=== PATIENT | female | born 1990 | race Caucasian/White ===

== ENCOUNTER 2017-08-19 17:23 | Emergency (ER) | payer BC ==
[2017-08-19 17:48] VITALS: BP 131/81
--- NOTE | 2017-08-19 18:43 | UC ---
Respiratory Complaint HPI - HPI Summary HPI Summary: 27f presents with cough for 2 weeks. She admits to SOB and some wheezing. no history of asthma. admits to post nasal drip and some sinus congestion. no sinus tenderness. no sore throat. no n/v or abdominal pain. tried cough medication without relief. - History of Current Complaint Chief Complaint: UCRespiratory Stated Complaint: COUGH/CONGESTION Time Seen by Provider: 08/19/17 18:05 Hx Last Menstrual Period: 08/04/17 - Allergies/Home Medications Allergies/Adverse Reactions: Allergies Allergy/AdvReac Type Severity Reaction Status Date / Time No Known Allergies Allergy Verified 08/19/17 17:40 Home Medications: Home Medications Escitalopram (NF) [Lexapro 10 mg (NF)] 10 mg PO DAILY 08/19/17 [History Confirmed 08/19/17] PMH/Surg Hx/FS Hx/Imm Hx Endocrine History: Other Other Endocrine History: no DM Respiratory History: Other Other Respiratory History: no asthma - Surgical History Surgical History: Yes Surgery Procedure, Year, and Place: APPENDECTOMY - Family History Known Family History: Negative: Respiratory Disease - Social History Alcohol Use: Occasionally Substance Use Type: None Smoking Status (MU): Light Every Day Tobacco Smoker Type: Cigarettes Amount Used/How Often: 5 CIGS PER DAY - Immunization History Most Recent Influenza Vaccination: JUL 2017 Most Recent Tetanus Shot: 2010 Review of Systems Constitutional: Negative ENT: Sinus Congestion Respiratory: Cough Cardiovascular: Negative Gastrointestinal: Negative All Other Systems Reviewed And Are Negative: Yes Physical Exam Triage Information Reviewed: Yes Appearance: Well-Appearing Vital Signs: Initial Vital Signs Temp 98.5 F 08/19/17 17:41 Pulse 80 08/19/17 17:41 Resp 18 08/19/17 17:41 BP 131/81 08/19/17 17:41 Pulse Ox 99 08/19/17 17:41 Vital Signs Reviewed: Yes Eyes: Positive: Conjunctiva Clear ENT: Positive: Normal ENT inspection, Pharynx normal, Nasal drainage, TMs normal Neck: Positive: Supple, Nontender, No Lymphadenopathy Respiratory: Positive: Lungs clear, Other: - some crackles heard Cardiovascular: Positive: RRR Abdomen Description: Positive: Nontender, Soft Bowel Sounds: Positive: Present Musculoskeletal Exam: Normal Neurological Exam: Normal Psychological Exam: Normal Skin Exam: Normal UC Diagnostic Evaluation - Laboratory O2 Sat by Pulse Oximetry: 99 - Radiology Xray Interpretation: No Acute Changes Radiology Interpretation Completed By: Radiologist Respiratory Course/Dx - Course Course Of Treatment: 27f presents with cough for 2 weeks. She admits to SOB and some wheezing. no history of asthma. admits to post nasal drip and some sinus congestion. no sinus tenderness. no sore throat. no n/v or abdominal pain. tried cough medication without relief. on exam some crackles heard lungs. xray normal. will treat with prednisone, inhaler and cough medication. BP in pre -HTN range patient understands will need follow up about blood pressure. - Differential Dx/Diagnosis Differential Diagnosis/HQI/PQRI: Bronchitis, Influenza, Lower Resp Infection Provider Diagnoses: upper resp infection Discharge - Discharge Plan Condition: Good Disposition: HOME Prescriptions: Albuterol HFA INHALER* [Ventolin HFA Inhaler*] 1 puff INH Q6H PRN #1 mdi PRN Reason: Cough guaiFENesin/CODIEN 100MG-10MG* [Robitussin AC 100Mg-10Mg*] 5 ml PO Q6H PRN #100 ml MDD 20ml PRN Reason: Cough predniSONE TAB* [Deltasone TAB*] 40 mg PO DAILY #5 tab Patient Education Materials: Upper Respiratory Infection (ED) Forms: *Work Release Referrals: Lucila Alvarez NP [Primary Care Provider] - Additional Instructions: Take steriod once a day for 5 days Take cough medication 5ml (1 teaspoon) every 6 hours as needed cough Use inhaler up to two puffs every 4-6 hours for cough Use saline in the nose for nasal congestion, can also get Sudafed at pharmacy counter for nasal congestion Use humidifier or place warm bowls of water around the room for cough Take Tylenol or ibuprofen for pain every 6 hours Return to ED if develop any new or worsening symptoms
--- NOTE | 2017-08-19 18:52 | RAD ---
INDICATION: Cough. Short of breath. COMPARISON: None TECHNIQUE: PA and lateral dual-energy views were obtained. FINDINGS: Bones/Soft Tissues: There are no acute bony findings. Cardiomediastinal: The cardiomediastinal silhouette is normal. Lungs: There are no infiltrates. Pleura: There are no pleural effusions. Other: None IMPRESSION: NEGATIVE EXAMINATION.
== END 2017-08-19 19:18 | disposition home or self-care (01) ==
LOC: UCCORT 17:23
DX: R05 Cough (principal)
CPT/HCPCS: 71020; 99212; G0463

== ENCOUNTER 2017-11-06 08:27 | Day surgery (SDC) | payer BC ==
--- NOTE | 2017-10-16 09:41 | HP ---
CC: Lucila Alvarez NP* ADMISSION HISTORY AND PHYSICAL: DATE OF ADMISSION/SURGERY: 11/06/17 ATTENDING SURGEON: Annika Peralta MD* (dictated by AGUILA Gan) PRIMARY CARE PHYSICIAN: Lucila Alvarez NP. CHIEF COMPLAINT: Left breast lump. HISTORY OF PRESENT ILLNESS: Edilia is a pleasant 27-year-old female who was seen in the office earlier this month to discuss a left breast lump. Apparently , the patient had this issue for a little over a year now that she noticed on a self- breast exam. She notes that the lump had started being tender in the beginning; however, the pain and tenderness had diminished over time. She also noticed that the lump has progressively gotten a little bigger since the onset. She denies any other associated symptoms with the left breast. There is no skin changes, tenderness, swelling, redness, nipple discharge or axillary lymphadenopathy. She also denies any similar symptoms in the past or in the contralateral breast. She, otherwise, is a very healthy young female with no significant past medical or surgical history. Her menarche was at age 18 and had a miscarriage at age 21 for unspecified reason. She has been taking control pills for the past 7 years and denies any history of DVT or PE. She denies any significant changes since her last office visit. She went on and had an ultrasound about a month ago that revealed a solid, well-demarcated, well -circumscribed mass on the left breast consistent with possible fibroadenoma for which we discussed with her proceeding with either tissue biopsy or excision. The patient was seen by Dr. Peralta a couple of weeks ago and she elected to go forth with a surgical excision of the left breast lump for which she will be scheduled on a later date. PAST MEDICAL HISTORY: Essentially unremarkable. She denies any history of heart, lung, liver or kidney disease. PAST SURGICAL HISTORY: Significant for a laparoscopic appendectomy back in 2013. CURRENT MEDICATIONS: Include control pills and escitalopram 10 mg daily. ALLERGIES: She has no known drug allergies. FAMILY HISTORY: She denies any family history of breast cancer. SOCIAL HISTORY: The patient is a smoker who smokes half a pack per day. She drinks alcohol occasionally and caffeine intake is moderately. REVIEW OF SYSTEMS: See HPI, otherwise negative. She denies any headache, dizziness, blurred vision or double vision. No sore throat, cough, wheezing or shortness of breath. She denies any chest pain, palpitations or ankle swelling. No back pain, flank pain, dysuria, hematuria or urinary frequency. She denies any abdominal pain, nausea, vomiting, recent changes in the bowel habits or bleeding per rectum. She admits to a left breast lump that she noticed a year ago on self- breast exam, but denies any significant changes of the breast or nipple discharge. No fever, chills, night sweats or recent weight loss. PHYSICAL EXAMINATION GENERAL: She is a pleasant healthy-appearing young female in no acute distress or discomfort at the time of consultation. VITAL SIGNS: Revealed blood pressure of 138/78, pulse of 76, respirations of 16 , temperature of 97.5. She is 5 feet 6 inches tall, 140 pounds with BMI of 22.6. HEENT: Sclerae anicteric. PERRLA. Head is normocephalic, atraumatic. EOMs intact. Oropharynx is pink and moist. NECK: Supple. Trachea midline. No cervical adenopathy noted. LUNGS: Clear to auscultation bilaterally. HEART: Regular rate and rhythm. Normal S1 and S2 without rubs, murmurs, or gallops. BACK: Normal curvature. No CVA tenderness. BREASTS: Her breast exam was performed by Dr. Peralta 2 weeks ago with the patient in a supine position and also in a sitting position. Breasts were symmetrical. The skin was intact with no skin changes noted bilaterally. Palpation of the left breast revealed a mass, small, rubbery, oval with smooth edges and mobile, located roughly around the 9 o'clock position from the areola. There were no skin changes or nipple discharge noted. No supraclavicular or axillary lymphadenopathy. Right breast exam was essentially within normal limits. EXTREMITIES: Without cyanosis, clubbing, or edema. RECTAL: Deferred at this time. NEUROLOGIC: Grossly intact. IMPRESSION: A 27-year-old female with a left breast lump. PLAN: The patient scheduled for excision of a left breast lump on 11/06/[address] Peralta. We went on and discussed with her the rationale, indications, risks and benefits of surgery. Risks include but not limited to infection, bleeding or injury to adjacent structures. She seems to be well informed and understanding and wishes to proceed with surgery as outlined. We will plan to see her back in the office 1 week postoperatively for a followup visit. AGUILA GAN [id number]/[facility] #: [id number] MTDRajani
[~2017-11-06 08:27] MED LIST: Buffered Lidocaine 0.9% SYRIN* 5 ML/SYR SYRINGE INTRADERM ONE
[2017-11-06] MEDS ORDERED: ceFAZolin 2 GM PREMIX (*) 2 GM/50 ML BAG IVPB ONE (08:38)
[2017-11-06] MEDS ORDERED: Buffered Lidocaine 0.9% SYRIN* 5 ML/SYR SYRINGE ONE (09:01)
[2017-11-06] MEDS ORDERED: fentaNYL* 50 MCG/ML 2 ML VIAL (100 MCG VIAL) ONE (09:34)
[2017-11-06] MEDS ORDERED: Midazolam* 1 MG/ML 2 ML VIAL (2 MG) ONE ×2 (09:34→10:30)
[2017-11-06] MEDS ORDERED: Lidocaine 1% MPF wEPI 200,000* 30 ML SDV ONE (10:02)
[2017-11-06] MEDS ORDERED: Bupivacaine 0.25% SDV* 30 ML ONE (10:02)
[2017-11-06] MEDS ORDERED: Propofol* 10 MG/ML 20 ML BTL IV PUSH ONE (10:24)
[2017-11-06] MEDS ORDERED: Naloxone* 0.4 MG/ML 1 ML VIAL IV PRN (11:06)
[2017-11-06 12:16] VITALS: BP 121/78
--- NOTE | 2017-11-07 09:52 | OP ---
CC: Surgical associates; Lucila Alvarez NP * DATE OF OPERATION: 11/06/17 - [facility] DATE OF : 89 SURGEON: Annika Peralta MD. [employer] GLASS WORKER: There was no surgery assistant for this case. PRE-OP DIAGNOSIS: Left breast lump. POST-OP DIAGNOSIS: Left breast lump. PROCEDURE: Excision of left breast lump. INDICATIONS: Edilia Sanchez is a 27-year-old female who presented to the office with a palpable lump in the left breast prompting the plan for further surgical intervention. DESCRIPTION OF PROCEDURE: On the morning of surgery, she was brought to the operating room, placed on the OR table in a supine position and given IV sedation. The left breast was prepped and draped in the usual sterile fashion. After infiltrating with local anesthetic, a curvilinear incision was made over the lump and subcutaneous tissue was divided with electrocautery. The lump was palpated and grasped and elevated into the wound and excised from the breast tissue. It was handed off as a specimen. The patient had requested a photograph. So, the specimen was cut in half, and a photograph of the lump was taken. Hemostasis was assured with electrocautery. Once this was adequate, some additional local was instilled into the wound and then closure was accomplished with 3-0 Vicryl to reapproximate the subcutaneous tissue and the skin was closed with 4-0 Prolene in a subcuticular fashion. Steri-Strips and a dry sterile dressing were applied. She tolerated the procedure well. All sponge and instrument counts were correct. She was transferred to Recovery in a stable condition. [id number]/[facility] #: [id number] EMPERATRIZ
== END 2017-11-06 12:20 | disposition home or self-care (01) ==
LOC: OR 08:27
PROVIDERS: ATTEND Surgery
DX: D24.2 Benign neoplasm of left breast (principal); F17.210 Nicotine dependence, cigarettes, uncomplicated; J45.909 Unspecified asthma, uncomplicated; F32.9 Major depressive disorder, single episode, unspecified
CPT/HCPCS: 81025; 88307; J0690; J2001; J2250; J2704; J3010

== ENCOUNTER 2018-01-06 09:10 | Emergency (ER) | payer BC ==
[2018-01-06 09:25] VITALS: BP 137/79
--- NOTE | 2018-01-06 10:00 | UC ---
Respiratory Complaint HPI - HPI Summary HPI Summary: Cough, congestion, sore throat, malaise, achiness since Thursday. Fever was on Thursday but has resolved since. SHe says there is no chance of and she denies lung disease. She is a smoker. - History of Current Complaint Chief Complaint: UCGeneralIllness Stated Complaint: SORE THROAT ACHY Time Seen by Provider: 01/06/18 09:35 Hx Obtained From: Patient Hx Last Menstrual Period: ?: No Onset/Duration: Gradual Onset, Lasting Days Timing: Constant Severity Initially: Moderate Severity Currently: Moderate Pain Intensity: 7 Pain Scale Used: 0-10 Numeric Character: Cough: Nonproductive Aggravating Factors: Deep Breaths, Recumbent Position Alleviating Factors: Upright Position, Spontaneous Resolution Associated Signs And Symptoms: Positive: Fever, URI, Nasal Congestion. Negative : Dyspnea, Pleuritic Chest Pain, Wheezing, Hemoptysis, Dizziness, Calf Pain, Calf Swelling - Allergies/Home Medications Allergies/Adverse Reactions: Allergies Allergy/AdvReac Type Severity Reaction Status Date / Time No Known Allergies Allergy Verified 11/06/17 08:45 Home Medications: Home Medications Dm/PE/Acetaminophen/Chlorphenr [Cold Multi-Symptom Day-Night] 01/06/18 [History ] PMH/Surg Hx/FS Hx/Imm Hx Previously Healthy: No - smoker. - Surgical History Surgical History: Yes Surgery Procedure, Year, and Place: APPENDECTOMY, 2015. tear duct surgery. LEFT BREAST LUMPECTOMY - Family History Known Family History: Negative: Respiratory Disease - Social History Occupation: Employed Full-time Alcohol Use: Occasionally Alcohol Amount: 5 per week Substance Use Type: None Smoking Status (MU): Light Every Day Tobacco Smoker Type: Cigarettes Amount Used/How Often: 5 CIGS PER DAY for 10 yrs Household Exposure Type: Cigarettes - Immunization History Most Recent Influenza Vaccination: JUL 2017 Most Recent Tetanus Shot: 2010 Review of Systems Constitutional: Fever ENT: Sore Throat, Sinus Congestion Respiratory: Cough All Other Systems Reviewed And Are Negative: Yes Physical Exam Triage Information Reviewed: Yes Appearance: Well-Appearing, No Pain Distress, Well-Nourished Vital Signs: Initial Vital Signs Temp 98.6 F 01/06/18 09:17 Pulse 81 01/06/18 09:17 Resp 18 01/06/18 09:17 BP 137/79 01/06/18 09:17 Pulse Ox 99 01/06/18 09:17 Vital Signs Reviewed: Yes Eyes: Positive: Conjunctiva Clear ENT: Positive: Normal ENT inspection, Pharynx normal, TMs normal, Uvula midline. Negative: Pharyngeal erythema, Nasal congestion, Nasal drainage, TM bulging, TM dull, TM red, Tonsillar swelling, Tonsillar exudate, Trismus, Muffled voice, Hoarse voice, Dental tenderness, Sinus tenderness Neck: Positive: Supple, Nontender, No Lymphadenopathy Respiratory: Positive: Lungs clear, Normal breath sounds, No respiratory distress, No accessory muscle use. Negative: Respiratory distress, Decreased breath sounds, Accessory muscle use, Crackles, Rhonchi, Stridor, Wheezing Cardiovascular: Positive: No Murmur, Pulses Normal, Brisk Capillary Refill. Negative: Tachycardia Abdomen Description: Positive: No Organomegaly, Soft. Negative: Distended, Guarding Musculoskeletal: Positive: Strength Intact, ROM Intact, No Edema Neurological: Positive: Alert, Muscle Tone Normal. Negative: Fatigued Psychological: Positive: Age Appropriate Behavior Skin: Negative: rashes UC Diagnostic Evaluation - Laboratory O2 Sat by Pulse Oximetry: 99 Respiratory Course/Dx - Course Course Of Treatment: URI symptoms some of these symptoms are c/w influenza but she has otherwise healthy and denies chance of . she is day 4 into the illness and has no signs of complications thus far. She will return for any signs of pneumonia. supportive care described in detail. - Differential Dx/Diagnosis Provider Diagnoses: uri. possible influenza. Discharge - Discharge Plan Condition: Good Disposition: HOME Patient Education Materials: Upper Respiratory Infection (ED) Forms: *Work Release Referrals: Lucila Alvarez NP [Primary Care Provider] - If Needed
== END 2018-01-06 09:50 | disposition home or self-care (01) ==
LOC: UCCORT 09:10
DX: J06.9 Acute upper respiratory infection, unspecified (principal); F17.210 Nicotine dependence, cigarettes, uncomplicated
CPT/HCPCS: 99211; G0463